=== PATIENT | male | born 1945 | race Caucasian/White ===

== ENCOUNTER → 2019-08-02 | Outpatient (CLI) | payer MEDICARE | END | disposition home or self-care (01) | LOC: SHCH 13:57 | PROVIDERS: ATTEND Internal Medicine Cardiovascular Disease | DX: R60.0 Localized edema (principal) | CPT/HCPCS: 93306; 93970 ==

== ENCOUNTER → 2019-08-05 | Outpatient (CLI) | payer OTHER | END | disposition home or self-care (01) | LOC: RAH 10:04 → EDUNIT# 10:30 | PROVIDERS: ATTEND Internal Medicine Cardiovascular Disease | DX: Z13.6 Encounter for screening for cardiovascular disorders (principal) | CPT/HCPCS: 75571 ==

== ENCOUNTER → 2019-11-04 | Outpatient (CLI) | payer MEDICARE | END | disposition home or self-care (01) | LOC: SHCH 15:40 | PROVIDERS: ATTEND Internal Medicine Cardiovascular Disease | DX: I82.812 Embolism and thrombosis of superficial veins of left lower extremity (principal); Z09 Encounter for follow-up examination after completed treatment for conditions other than malignant neoplasm | CPT/HCPCS: 93971 ==

== ENCOUNTER → 2023-09-06 | Outpatient (CLI) | payer MEDICARE ==
[~2023-09-06] MED LIST: AEC81 PO; ALLO100T PO; CALC0.253 PO; CETI10TA57 PO; CHOL2000 PO; CHOL200026 PO; DOCU-116 PO; FERS325 PO; FOLI0.8T53 PO; FOLIC ACID PO; FURO20TA4 PO; IMAT100T8 PO; INSLAN SQ; LABE100T7 PO; MAGN250T10 PO; MIDO10TA PO; PATI8.4P PO; SEMA1PEN3 SQ; SEMA2PEN SQ; SIMV40TA59 PO; SODI650T PO; TACR0.5C7 PO; TAMS-1 PO; TRAM50TA4 PO; VITAMIN B12 PO
== END | disposition home or self-care (01) ==
LOC: SHCH 10:00
PROVIDERS: ATTEND Student in an Organized Health Care Education/Training Program
DX: R42 Dizziness and giddiness (principal)
CPT/HCPCS: 93306

== ENCOUNTER 2023-09-29 15:30 | Inpatient (IN) | payer MEDICARE ==
[~2023-09-29] VITALS: Ht 185.4 cm; Wt 116.6 kg
[~2023-09-29 15:30] MED LIST changes: -ALLO100T PO; -CHOL200026 PO; -FOLI0.8T53 PO; -MIDO10TA PO; -SEMA1PEN3 SQ
[2023-09-29] MEDS ORDERED: VANCOMYCIN PROTOCOL PER PHARMACY IV SCH (16:00)
[2023-09-29 16:20] LABS: BASOPHILS # (AUTO) 0.07 K/uL (0.00-0.20); BASOPHILS % (AUTO) 0.3 % (0.0-5.0); EOSINOPHILS # (AUTO) 0.04 K/uL (0.00-0.70); EOSINOPHILS % (AUTO) 0.2 % (0.0-8.0); HEMATOCRIT 33.4 % (42-54); IMMATURE GRANULOCYTE ABSOLUTE 0.18 K/uL (0-1); LYMPHOCYTES # (AUTO) 0.2 K/uL (1.0-4.8); LYMPHOCYTES % (AUTO) 0.7 % (21.0-51.0); MEAN CORPUSCULAR HEMOGLOBIN 29.3 pg (27.0-33.0); MEAN CORPUSCULAR HGB CONC 32.3 g/dL (32.0-36.0); MEAN CORPUSCULAR VOLUME 90.8 fL (79-99); MONOCYTES # (AUTO) 0.1 K/uL (0.1-1.0); MONOCYTES % (AUTO) 0.6 % (3.0-13.0); NEUTROPHILS # (AUTO) 23.8 K/uL (1.8-7.7); NEUTROPHILS % (AUTO) 97.5 % (40.0-77.0); PLATELET COUNT (AUTO) 308 K/uL (130-400); RED BLOOD CELL COUNT(AUTO) 3.68 MIL/uL (4.50-6.20); RED CELL DISTRIBUTION WIDTH 14.6 % (11.0-15.5); WHITE BLOOD COUNT (AUTO) 24.4 K/uL (4.8-10.8)
[2023-09-29] MEDS ORDERED: ACETAMINOPHEN 325 MG TAB PO PRN (16:30)
[2023-09-29] MEDS ORDERED: CEFEPIME HCL 2 GM VIAL IVPB SCH (16:30)
[2023-09-29] MEDS ORDERED: ONDANSETRON 4MG INJ IVP PRN (16:30)
[2023-09-29 16:54] LABS: ALBUMIN 2.1 g/dL (3.5-5.0); BILIRUBIN,TOTAL 0.3 mg/dL (0.2-1.0); TOTAL PROTEIN, SERUM 6.3 g/dL (6.0-8.3)
[2023-09-29 16:58] LABS: POTASSIUM 2.9 mmol/L (3.5-5.1)
[2023-09-29] MEDS: 0.9%NACL 1000ML 2,397 ML IV ONE (17:13)
[2023-09-29] MEDS: VANCOMYCIN 2GM/500 ML BAG 500 ML IV ONE (17:38)
[2023-09-29] MEDS: HEPARIN 5,000 UNIT VIAL SQ SCH (17:38)
[2023-09-29] MEDS: KCL 20 MEQ ERTAB PO ONE (17:39)
[2023-09-29] MEDS: CEFEPIME HCL 1 GM VIAL IVPB SCH (17:41)
[2023-09-29 18:51] LABS: INFLUENZA TYPE A Negative For Type A (NEGATIVE); INFLUENZA TYPE B Negative For Type B (NEGATIVE)
[2023-09-29] MEDS ORDERED: MIDO10TA PO ×2 (20:02)
[2023-09-29] MEDS ORDERED: FOLI0.8T53 PO (20:16)
[2023-09-29] MEDS ORDERED: ALLO100T PO (20:16)
[2023-09-29] MEDS ORDERED: CHOL200026 PO (20:16)
[2023-09-29] MEDS ORDERED: SEMA1PEN3 SQ (20:16)
[2023-09-29] MEDS ORDERED: CALC0.253 PO (20:16)
[2023-09-29] MEDS: MIDODRINE HCL 5 MG TABLET ONE (20:26)
[2023-09-29] MEDS: MIDODRINE HCL 5 MG TABLET PO SCH (20:26)
[2023-09-29 20:50] LABS: APPEARANCE,URINE CLOUDY (CLEAR); BILIRUBIN,URINE NEGATIVE (NEGATIVE); COLOR,URINE YELLOW (YELLOW); GLUCOSE, URINE (UA) 500 mg/dL (NEGATIVE); KETONES,URINE NEGATIVE (NEGATIVE); LEUKOCYTE ESTERASE ,URINE 500 Leu/uL (NEGATIVE); NITRATE,URINE NEGATIVE (NEGATIVE); OCCULT BLOOD,URINE LARGE (NEGATIVE); PROTEIN,URINE 70 mg/dL (NEGATIVE); UROBILINOGEN,URINE 0.2 mg/dL (0.2-1.0)
[2023-09-29] MEDS: ALBUMIN (HUMAN) 25% 50 ML IV SCH (20:58)
[2023-09-29] MEDS: ALBUMIN (HUMAN) 25% 50 ML IV ONE (20:58)
[2023-09-29 21:05] LABS: ADD UA MICROSCOPIC YES
[2023-09-29 21:11] LABS: BACTERIA,URINE RARE /HPF (None Seen); RBC,URINE 26-50 /HPF (0-1); SQUAMOUS EPITHELIAL CELL,UR RARE /HPF (0-2); WBC,URINE 26-50 /HPF (0-1)
[2023-09-29] MEDS: NOREPINEPHRIN 4MG/NS 250ML 250 ML IV SCH (21:56)
[2023-09-29 23:45] VITALS: BP 131/63; PULSE 90; RESP 24
[2023-09-30] VITALS (120 sets, daily range): BP systolic 78–134; BP diastolic 31–69; PULSE 71–103; RESP 13–36; TEMP 98.6–98.8; O2SAT 94–98
[2023-09-30 01:05] LABS: ALBUMIN 1.9 g/dL (3.5-5.0); BILIRUBIN,TOTAL 0.5 mg/dL (0.2-1.0); MAGNESIUM 1.6 mg/dL (1.80-2.40); POTASSIUM 3.3 mmol/L (3.5-5.1); TOTAL PROTEIN, SERUM 5.7 g/dL (6.0-8.3)
[2023-09-30 01:08] LABS: CREATININE 11.7 mg/dL (0.5-1.3)
[2023-09-30] MEDS: MAGNESIUM 2GM PREMIX 50ML 50 ML IV ONE (01:42)
[2023-09-30 05:46] LABS: BASOPHILS # (AUTO) 0.08 K/uL (0.00-0.20); BASOPHILS % (AUTO) 0.3 % (0.0-5.0); EOSINOPHILS # (AUTO) 0.01 K/uL (0.00-0.70); HEMATOCRIT 28.5 % (42-54); LYMPHOCYTES # (AUTO) 0.4 K/uL (1.0-4.8); LYMPHOCYTES % (AUTO) 1.7 % (21.0-51.0); MEAN CORPUSCULAR HEMOGLOBIN 29.8 pg (27.0-33.0); MEAN CORPUSCULAR HGB CONC 33.3 g/dL (32.0-36.0); MEAN CORPUSCULAR VOLUME 89.3 fL (79-99); MONOCYTES # (AUTO) 1.5 K/uL (0.1-1.0); MONOCYTES % (AUTO) 6.2 % (3.0-13.0); NEUTROPHILS # (AUTO) 22.5 K/uL (1.8-7.7); PLATELET COUNT (AUTO) 234 K/uL (130-400); RED BLOOD CELL COUNT(AUTO) 3.19 MIL/uL (4.50-6.20); RED CELL DISTRIBUTION WIDTH 14.4 % (11.0-15.5); WHITE BLOOD COUNT (AUTO) 24.8 K/uL (4.8-10.8)
[2023-09-30 06:06] LABS: INR 1.02 (0.85-1.15); PROTHROMBIN TIME 10.8 SEC (9.6-11.6)
[2023-09-30 06:08] LABS: HEMOGLOBIN A1C 6.8 % (4.0-6.0)
[2023-09-30 06:18] LABS: ALBUMIN 1.7 g/dL (3.5-5.0); BILIRUBIN,TOTAL 0.4 mg/dL (0.2-1.0); MAGNESIUM 2.1 mg/dL (1.80-2.40); TOTAL PROTEIN, SERUM 5.3 g/dL (6.0-8.3); VANCOMYCIN LEVEL 28.1 mcg/mL (20.0-30.0)
[2023-09-30 06:21] LABS: CREATININE 11.9 mg/dL (0.5-1.3)
[2023-09-30] MEDS: MIDODRINE HCL 5 MG TABLET PO SCH (08:12)
[2023-09-30] MEDS: 0.9%NACL 1000ML 500 ML IV STA (10:39)
[2023-09-30] MEDS: ZOSYN 3.375GM +NS 50ML IV SCH (11:56)
[2023-09-30] MEDS ORDERED: MIDODRINE HCL 5 MG TABLET PO SCH (12:00)
[2023-09-30] MEDS: INSULIN HUMULIN R 100 UNIT/ML 3ML SQ SCH (16:30)
[2023-09-30] MEDS: 0.9%NACL 1000ML 1,000 ML IV SCH (19:39)
[2023-09-30] MEDS: HEPARIN 5,000 UNIT VIAL IJ SCH (19:41)
[2023-09-30] MEDS ORDERED: TACROLIMUS 0.5 MG CAPSULE PO SCH (21:00)
[2023-09-30] MEDS: IMATINIB MESYLATE 200 MG PO SCH (21:00)
[2023-09-30] MEDS: TAMSULOSIN HCL 0.4 MG CAP.ER.24H PO SCH (22:28)
[2023-09-30] MEDS: TACROLIMUS 0.5 MG CAPSULE PO SCH (22:57)
[2023-10-01] VITALS (41 sets, daily range): BP systolic 86–129; BP diastolic 38–63; PULSE 75–102; RESP 15–30; TEMP 97.5–97.9; O2SAT 94–97
[2023-10-01 04:36] LABS: BASOPHILS # (AUTO) 0.07 K/uL (0.00-0.20); BASOPHILS % (AUTO) 0.5 % (0.0-5.0); EOSINOPHILS # (AUTO) 0.07 K/uL (0.00-0.70); EOSINOPHILS % (AUTO) 0.5 % (0.0-8.0); HEMATOCRIT 28.6 % (42-54); IMMATURE GRANULOCYTE ABSOLUTE 0.06 K/uL (0-1); LYMPHOCYTES # (AUTO) 0.5 K/uL (1.0-4.8); LYMPHOCYTES % (AUTO) 3.2 % (21.0-51.0); MEAN CORPUSCULAR HEMOGLOBIN 29.2 pg (27.0-33.0); MEAN CORPUSCULAR HGB CONC 32.5 g/dL (32.0-36.0); MEAN CORPUSCULAR VOLUME 89.7 fL (79-99); MONOCYTES # (AUTO) 1.7 K/uL (0.1-1.0); MONOCYTES % (AUTO) 11.4 % (3.0-13.0); NEUTROPHILS # (AUTO) 12.2 K/uL (1.8-7.7); PLATELET COUNT (AUTO) 205 K/uL (130-400); RED BLOOD CELL COUNT(AUTO) 3.19 MIL/uL (4.50-6.20); RED CELL DISTRIBUTION WIDTH 14.5 % (11.0-15.5); WHITE BLOOD COUNT (AUTO) 14.6 K/uL (4.8-10.8)
[2023-10-01 05:03] LABS: ALBUMIN 1.4 g/dL (3.5-5.0); BILIRUBIN,TOTAL 0.5 mg/dL (0.2-1.0); CREATININE 7.7 mg/dL (0.5-1.3); POTASSIUM 3.6 mmol/L (3.5-5.1); TOTAL PROTEIN, SERUM 4.9 g/dL (6.0-8.3)
[2023-10-01] MEDS: FLUCONAZOLE 400 MG/NS 200 ML 200 ML IV SCH (09:36)
[2023-10-01] MEDS: 0.9%NACL 1000ML 1,000 ML IV SCH (11:50)
[2023-10-01] MEDS: INSULIN GLARGINE 100 UNITS/ML 10 ML VIAL SQ SCH (12:11)
[2023-10-01 13:36] LABS: HEPATITIS B SURFACE ANTIGEN Non-Reactive (Nonreactive)
[2023-10-01] MEDS ORDERED: HEPARIN 5,000 UNIT VIAL IRRIG PRN (14:30)
[2023-10-01 16:34] LABS: HEPATITIS B CORE AB TOTAL Non-Reactive (Nonreactive); HEPATITIS B SURFACE ANTIBODY Negative (Reactive)
[2023-10-01] MEDS: HEPARIN 5,000 UNIT VIAL IRRIG PRN (16:43)
[2023-10-01] MEDS: VANCOMYCIN 750MG VIAL IVPB SCH (16:44)
[2023-10-02] VITALS (10 sets, daily range): BP systolic 65–103; BP diastolic 37–56; PULSE 80–95; RESP 18–21; O2SAT 95–98
[2023-10-02 03:26] LABS: BASOPHILS # (AUTO) 0.07 K/uL (0.00-0.20); BASOPHILS % (AUTO) 0.4 % (0.0-5.0); EOSINOPHILS % (AUTO) 0.6 % (0.0-8.0); HEMATOCRIT 29.9 % (42-54); IMMATURE GRANULOCYTE ABSOLUTE 0.13 K/uL (0-1); LYMPHOCYTES # (AUTO) 0.6 K/uL (1.0-4.8); LYMPHOCYTES % (AUTO) 3.6 % (21.0-51.0); MEAN CORPUSCULAR HEMOGLOBIN 29.2 pg (27.0-33.0); MEAN CORPUSCULAR HGB CONC 31.8 g/dL (32.0-36.0); MONOCYTES # (AUTO) 1.2 K/uL (0.1-1.0); MONOCYTES % (AUTO) 7.4 % (3.0-13.0); NEUTROPHILS # (AUTO) 14.1 K/uL (1.8-7.7); NEUTROPHILS % (AUTO) 87.2 % (40.0-77.0); PLATELET COUNT (AUTO) 215 K/uL (130-400); RED BLOOD CELL COUNT(AUTO) 3.25 MIL/uL (4.50-6.20); RED CELL DISTRIBUTION WIDTH 14.6 % (11.0-15.5); WHITE BLOOD COUNT (AUTO) 16.2 K/uL (4.8-10.8)
[2023-10-02 03:43] LABS: ALBUMIN 1.5 g/dL (3.5-5.0); BILIRUBIN,TOTAL 0.5 mg/dL (0.2-1.0); POTASSIUM 3.4 mmol/L (3.5-5.1); TOTAL PROTEIN, SERUM 5.4 g/dL (6.0-8.3)
[2023-10-02] MEDS: INSULIN GLARGINE 100 UNITS/ML 10 ML VIAL SQ SCH (08:17)
[2023-10-02] MEDS ORDERED: ALBUMIN (HUMAN) 25% 50 ML IV SCH (11:30)
[2023-10-02] MEDS: 0.9% NACL 500ML IV.SOLN 500 ML IV SCH (15:18)
[2023-10-02] MEDS ORDERED: ALBUMIN (HUMAN) 25% 100 ML IV PRN (17:00)
[2023-10-03] VITALS (46 sets, daily range): BP systolic 88–146; BP diastolic 42–80; PULSE 70–100; RESP 14–20; TEMP 98–98.4; O2SAT 96–98
[2023-10-03 05:23] LABS: BASOPHILS # (AUTO) 0.05 K/uL (0.00-0.20); BASOPHILS % (AUTO) 0.4 % (0.0-5.0); EOSINOPHILS # (AUTO) 0.19 K/uL (0.00-0.70); EOSINOPHILS % (AUTO) 1.5 % (0.0-8.0); HEMATOCRIT 25.3 % (42-54); IMMATURE GRANULOCYTE ABSOLUTE 0.08 K/uL (0-1); LYMPHOCYTES # (AUTO) 0.8 K/uL (1.0-4.8); LYMPHOCYTES % (AUTO) 6.4 % (21.0-51.0); MEAN CORPUSCULAR HEMOGLOBIN 29.3 pg (27.0-33.0); MEAN CORPUSCULAR HGB CONC 33.2 g/dL (32.0-36.0); MEAN CORPUSCULAR VOLUME 88.2 fL (79-99); MONOCYTES # (AUTO) 0.8 K/uL (0.1-1.0); MONOCYTES % (AUTO) 6.2 % (3.0-13.0); NEUTROPHILS # (AUTO) 10.9 K/uL (1.8-7.7); NEUTROPHILS % (AUTO) 84.9 % (40.0-77.0); PLATELET COUNT (AUTO) 195 K/uL (130-400); RED BLOOD CELL COUNT(AUTO) 2.87 MIL/uL (4.50-6.20); RED CELL DISTRIBUTION WIDTH 14.6 % (11.0-15.5); WHITE BLOOD COUNT (AUTO) 12.8 K/uL (4.8-10.8)
[2023-10-03 05:56] LABS: ALBUMIN 1.5 g/dL (3.5-5.0); BILIRUBIN,TOTAL 0.4 mg/dL (0.2-1.0); CREATININE 7.4 mg/dL (0.5-1.3); POTASSIUM 3.4 mmol/L (3.5-5.1); TOTAL PROTEIN, SERUM 4.8 g/dL (6.0-8.3); VANCOMYCIN TROUGH 20.1 UG/ML (10.0-20.0)
[2023-10-03] MEDS ORDERED: DEXAMETHASONE SOD PHOSPHATE 10MG/ML 1ML VIAL ONE (07:07)
[2023-10-03] MEDS ORDERED: MIDAZOLAM HCL 1 MG/ML 2ML VIAL ONE (07:07)
[2023-10-03] MEDS ORDERED: LIDOCAINE PF 100MG/5ML (2%) SYRINGE 5ML ONE (07:07)
[2023-10-03] MEDS ORDERED: GLYCOPYRROLATE 0.2 MG/ML 5 ML VIAL ONE (07:07)
[2023-10-03] MEDS ORDERED: FENTANYL CITRATE PF 50 MCG/1 ML 2ML VIAL ONE (07:08)
[2023-10-03] MEDS ORDERED: NEOSTIGMINE METHYLSULFATE 1MG/ML IV ONE (07:08)
[2023-10-03] MEDS ORDERED: ONDANSETRON 4MG INJ ONE (07:08)
[2023-10-03] MEDS ORDERED: SUCCINYLCHOLINE CHLORIDE 20 MG/ML 10 ML VIAL ONE (07:08)
[2023-10-03] MEDS ORDERED: ROCURONIUM BROMIDE 10MG/1ML 5ML VL ONE (07:08)
[2023-10-03] MEDS ORDERED: PROPOFOL 10 MG/ML 20ML VIAL IV ONE (07:08)
[2023-10-03] MEDS ORDERED: EPHEDRINE SULFATE 50 MG/ML AMPULE ONE (07:11)
[2023-10-03] MEDS ORDERED: ALBUMIN (HUMAN) 5% 250 ML IV ONE (07:40)
[2023-10-03] MEDS ORDERED: BUPIVACAINE/PF 0.5% 30ML VIAL ONE (07:45)
[2023-10-03] MEDS ORDERED: EPINEPHRINE PF 1MG (1:1,000) 1 MG/ML AMP ONE (07:46)
[2023-10-03] MEDS ORDERED: KETAMINE 50MG/ML SYRINGE 50 MG/ML DISP.SYRIN ONE (07:47)
[2023-10-03] MEDS: ZOSYN 3.375GM+NS 50ML 50 ML ONE ×2 (08:41)
[2023-10-03] MEDS: 0.9% NACL 500ML IV.SOLN 500 ML IV ONE (08:42)
[2023-10-03] MEDS: PIP/TAZ ZOSYN 3.375G 3.375 GM VIAL IVPB ONE (10:00)
[2023-10-03] MEDS ORDERED: HEPARIN 5,000 UNIT VIAL IRRIG PRN (16:00)
[2023-10-03] MEDS: 0.9%NACL 1000ML 1,000 ML IV SCH (16:30)
[2023-10-03] MEDS ORDERED: 0.9% NACL 250ML 250 ML IV SCH (16:30)
[2023-10-03] MEDS: EPOETIN ALFA-EPBX (NON-ESRD) 10,000 UNIT/ML VIAL SQ SCH (17:11)
[2023-10-04] VITALS (10 sets, daily range): BP systolic 118–135; BP diastolic 65–71; PULSE 64–78; RESP 18–20; O2SAT 96–99
[2023-10-04 03:37] LABS: BASOPHILS # (AUTO) 0.02 K/uL (0.00-0.20); BASOPHILS % (AUTO) 0.3 % (0.0-5.0); IMMATURE GRANULOCYTE ABSOLUTE 0.15 K/uL (0-1); LYMPHOCYTES # (AUTO) 0.5 K/uL (1.0-4.8); LYMPHOCYTES % (AUTO) 6.3 % (21.0-51.0); MEAN CORPUSCULAR HEMOGLOBIN 28.8 pg (27.0-33.0); MEAN CORPUSCULAR HGB CONC 31.7 g/dL (32.0-36.0); MEAN CORPUSCULAR VOLUME 90.9 fL (79-99); MONOCYTES # (AUTO) 0.1 K/uL (0.1-1.0); MONOCYTES % (AUTO) 1.7 % (3.0-13.0); NEUTROPHILS % (AUTO) 89.8 % (40.0-77.0); PLATELET COUNT (AUTO) 231 K/uL (130-400); RED BLOOD CELL COUNT(AUTO) 3.19 MIL/uL (4.50-6.20); RED CELL DISTRIBUTION WIDTH 14.5 % (11.0-15.5); WHITE BLOOD COUNT (AUTO) 7.8 K/uL (4.8-10.8)
[2023-10-04 03:59] LABS: ALBUMIN 1.6 g/dL (3.5-5.0); BILIRUBIN,TOTAL 0.4 mg/dL (0.2-1.0); CREATININE 5.9 mg/dL (0.5-1.3); POTASSIUM 4.4 mmol/L (3.5-5.1); TOTAL PROTEIN, SERUM 5.2 g/dL (6.0-8.3)
[2023-10-04 04:28] LABS: LYMPHOCYTES % (MANUAL) 8 % (22-44); MONOCYTES % (MANUAL) 1 % (2-9); SEGMENTED NEUTROPHILS % 91 % (40-70); TOTAL CELLS COUNTED 100
[2023-10-04 04:29] LABS: MAN.DIFF COMMENT-IMPRESSION MANUAL DIFFERENTIAL
[2023-10-04 04:34] LABS: PLATELET MORPHOLOGY COMMENT ADEQUATE; WBC MORPHOLOGY HYPERSEGMENT NEUT 1+
[2023-10-05] VITALS (7 sets, daily range): BP systolic 117–131; BP diastolic 58–72; PULSE 58–70; RESP 18–20; O2SAT 96–99
[2023-10-05 03:47] LABS: HEMATOCRIT 28.5 % (42-54); MEAN CORPUSCULAR HGB CONC 31.9 g/dL (32.0-36.0); MEAN CORPUSCULAR VOLUME 90.8 fL (79-99); RED BLOOD CELL COUNT(AUTO) 3.14 MIL/uL (4.50-6.20); RED CELL DISTRIBUTION WIDTH 14.5 % (11.0-15.5)
[2023-10-05 03:59] LABS: CREATININE 7.1 mg/dL (0.5-1.3); MAGNESIUM 1.9 mg/dL (1.80-2.40); POTASSIUM 3.8 mmol/L (3.5-5.1)
[2023-10-05] MEDS: MAGNESIUM 2GM PREMIX 50ML 50 ML IV SCH (05:27)
[2023-10-06] VITALS (29 sets, daily range): BP systolic 102–158; BP diastolic 49–69; PULSE 60–74; RESP 16–19; TEMP 97.7–97.9; O2SAT 96–100
[2023-10-06 03:35] LABS: HEMATOCRIT 29.2 % (42-54); MEAN CORPUSCULAR HEMOGLOBIN 28.4 pg (27.0-33.0); MEAN CORPUSCULAR HGB CONC 30.8 g/dL (32.0-36.0); MEAN CORPUSCULAR VOLUME 92.1 fL (79-99); NUCLEATED RED BLOOD CELLS 0.1 % (0.0-0.19); RED BLOOD CELL COUNT(AUTO) 3.17 MIL/uL (4.50-6.20); RED CELL DISTRIBUTION WIDTH 14.4 % (11.0-15.5); WHITE BLOOD COUNT (AUTO) 14.8 K/uL (4.8-10.8)
[2023-10-06 03:48] LABS: MAGNESIUM 2.1 mg/dL (1.80-2.40); POTASSIUM 3.5 mmol/L (3.5-5.1)
[2023-10-06 04:19] LABS: CREATININE 8.4 mg/dL (0.5-1.3)
[2023-10-06] MEDS: IPRATROPIUM 0.5 MG/2.5 ML INH IH SCH (06:32)
[2023-10-06] MEDS: SODIUM CHLORIDE 3% FOR INHALATION 4 ML/AMP VIAL.NEB IH ONE ×2 (06:32→11:51)
[2023-10-06] MEDS ORDERED: 0.9%NACL 1000ML 1,000 ML IV SCH (14:00)
[2023-10-06] MEDS: DOCUSATE SODIUM 100 MG CAP PO ONE (14:36)
[2023-10-07] VITALS (14 sets, daily range): BP systolic 114–160; BP diastolic 51–76; PULSE 56–87; RESP 18–19; O2SAT 95–98
[2023-10-07 04:00] LABS: BASOPHILS # (AUTO) 0.05 K/uL (0.00-0.20); BASOPHILS % (AUTO) 0.4 % (0.0-5.0); EOSINOPHILS # (AUTO) 0.16 K/uL (0.00-0.70); EOSINOPHILS % (AUTO) 1.2 % (0.0-8.0); HEMATOCRIT 28.4 % (42-54); IMMATURE GRANULOCYTE ABSOLUTE 0.95 K/uL (0-1); LYMPHOCYTES # (AUTO) 1.6 K/uL (1.0-4.8); LYMPHOCYTES % (AUTO) 11.5 % (21.0-51.0); MEAN CORPUSCULAR HEMOGLOBIN 28.9 pg (27.0-33.0); MEAN CORPUSCULAR HGB CONC 31.7 g/dL (32.0-36.0); MEAN CORPUSCULAR VOLUME 91.3 fL (79-99); MONOCYTES # (AUTO) 0.8 K/uL (0.1-1.0); NEUTROPHILS # (AUTO) 10.2 K/uL (1.8-7.7); NUCLEATED RED BLOOD CELLS 0.2 % (0.0-0.19); PLATELET COUNT (AUTO) 323 K/uL (130-400); RED BLOOD CELL COUNT(AUTO) 3.11 MIL/uL (4.50-6.20); RED CELL DISTRIBUTION WIDTH 14.5 % (11.0-15.5); WHITE BLOOD COUNT (AUTO) 13.8 K/uL (4.8-10.8)
[2023-10-07 04:28] LABS: ALBUMIN 1.5 g/dL (3.5-5.0); BILIRUBIN,TOTAL 0.3 mg/dL (0.2-1.0); CREATININE 6.6 mg/dL (0.5-1.3); POTASSIUM 3.3 mmol/L (3.5-5.1); TOTAL PROTEIN, SERUM 4.5 g/dL (6.0-8.3)
[2023-10-07 04:42] LABS: B-TYPE NATRIURETIC PEPTIDE 399 pg/mL (0-100)
[2023-10-07] MEDS: KCL 20 MEQ ERTAB PO ONE (12:39)
[2023-10-07] MEDS ORDERED: IOHEXOL-350 75 ML VIAL IV ONE (15:59)
[2023-10-07] MEDS: DOCUSATE SODIUM 100 MG CAP PO ONE (20:50)
[2023-10-08] VITALS (26 sets, daily range): BP systolic 102–173; BP diastolic 49–82; PULSE 43–94; RESP 16–20; TEMP 97.9–98.2; O2SAT 96–99
[2023-10-08 04:45] LABS: BASOPHILS # (AUTO) 0.07 K/uL (0.00-0.20); BASOPHILS % (AUTO) 0.5 % (0.0-5.0); EOSINOPHILS # (AUTO) 0.28 K/uL (0.00-0.70); EOSINOPHILS % (AUTO) 1.9 % (0.0-8.0); HEMATOCRIT 27.9 % (42-54); IMMATURE GRANULOCYTE ABSOLUTE 0.93 K/uL (0-1); LYMPHOCYTES # (AUTO) 1.6 K/uL (1.0-4.8); LYMPHOCYTES % (AUTO) 11.1 % (21.0-51.0); MEAN CORPUSCULAR HEMOGLOBIN 28.6 pg (27.0-33.0); MEAN CORPUSCULAR HGB CONC 31.9 g/dL (32.0-36.0); MEAN CORPUSCULAR VOLUME 89.7 fL (79-99); MONOCYTES # (AUTO) 0.9 K/uL (0.1-1.0); MONOCYTES % (AUTO) 6.2 % (3.0-13.0); NEUTROPHILS # (AUTO) 10.8 K/uL (1.8-7.7); NEUTROPHILS % (AUTO) 73.9 % (40.0-77.0); NUCLEATED RED BLOOD CELLS 0.5 % (0.0-0.19); PLATELET COUNT (AUTO) 316 K/uL (130-400); RED BLOOD CELL COUNT(AUTO) 3.11 MIL/uL (4.50-6.20); RED CELL DISTRIBUTION WIDTH 14.8 % (11.0-15.5); WHITE BLOOD COUNT (AUTO) 14.6 K/uL (4.8-10.8)
[2023-10-08 05:07] LABS: ALBUMIN 1.5 g/dL (3.5-5.0); BILIRUBIN,TOTAL 0.3 mg/dL (0.2-1.0); POTASSIUM 3.4 mmol/L (3.5-5.1); TOTAL PROTEIN, SERUM 4.6 g/dL (6.0-8.3); VANCOMYCIN TROUGH 24.9 UG/ML (10.0-20.0)
[2023-10-08 06:02] LABS: CREATININE 8.3 mg/dL (0.5-1.3)
[2023-10-08] MEDS ORDERED: 0.9%NACL 1000ML 1,000 ML IV SCH (08:30)
[2023-10-08] MEDS: ALLOPURINOL 100 MG TABLET PO ONE (17:19)
[2023-10-08] MEDS: IPRATROPIUM 0.5 MG/2.5 ML INH IH SCH (20:29)
[2023-10-08] MEDS: DOCUSATE SODIUM 100 MG CAP PO SCH (20:34)
[2023-10-09] VITALS (15 sets, daily range): BP systolic 114–149; BP diastolic 53–72; PULSE 74–98; RESP 18–22; O2SAT 95–98
[2023-10-09 03:32] LABS: MEAN CORPUSCULAR HEMOGLOBIN 28.9 pg (27.0-33.0); MEAN CORPUSCULAR HGB CONC 31.4 g/dL (32.0-36.0); MEAN CORPUSCULAR VOLUME 91.8 fL (79-99); NUCLEATED RED BLOOD CELLS 0.2 % (0.0-0.19); RED BLOOD CELL COUNT(AUTO) 3.05 MIL/uL (4.50-6.20); WHITE BLOOD COUNT (AUTO) 13.5 K/uL (4.8-10.8)
[2023-10-09 03:55] LABS: ALBUMIN 1.5 g/dL (3.5-5.0); BILIRUBIN,TOTAL 0.3 mg/dL (0.2-1.0); CREATININE 6.8 mg/dL (0.5-1.3); MAGNESIUM 1.6 mg/dL (1.80-2.40); POTASSIUM 3.6 mmol/L (3.5-5.1); TOTAL PROTEIN, SERUM 4.8 g/dL (6.0-8.3)
[2023-10-09] MEDS: BISACODYL 10 MG SUPP.RECT RC ONE (08:06)
[2023-10-09] MEDS: ALLOPURINOL 100 MG TABLET PO SCH (08:07)
[2023-10-09] MEDS: BISACODYL 5 MG TABLET.DR PO PRN (16:08)
[2023-10-09] MEDS: NYSTATIN-TRIAMCINOLONE CREAM 15 GM TP SCH (17:09)
[2023-10-09] MEDS: NYSTATIN 100000 UNIT/ML 5ML UDCUP PO SCH (17:09)
[2023-10-10] VITALS (34 sets, daily range): BP systolic 100–145; BP diastolic 49–74; PULSE 60–91; RESP 16–21; TEMP 98–98.5; O2SAT 95–100
[2023-10-10 05:14] LABS: BASOPHILS # (AUTO) 0.05 K/uL (0.00-0.20); BASOPHILS % (AUTO) 0.5 % (0.0-5.0); EOSINOPHILS % (AUTO) 2.1 % (0.0-8.0); HEMATOCRIT 25.5 % (42-54); IMMATURE GRANULOCYTE ABSOLUTE 0.57 K/uL (0-1); LYMPHOCYTES # (AUTO) 1.3 K/uL (1.0-4.8); LYMPHOCYTES % (AUTO) 14.2 % (21.0-51.0); MEAN CORPUSCULAR HEMOGLOBIN 28.1 pg (27.0-33.0); MEAN CORPUSCULAR HGB CONC 31.8 g/dL (32.0-36.0); MEAN CORPUSCULAR VOLUME 88.5 fL (79-99); MONOCYTES # (AUTO) 0.6 K/uL (0.1-1.0); MONOCYTES % (AUTO) 6.7 % (3.0-13.0); NEUTROPHILS # (AUTO) 6.6 K/uL (1.8-7.7); NEUTROPHILS % (AUTO) 70.4 % (40.0-77.0); PLATELET COUNT (AUTO) 276 K/uL (130-400); RED BLOOD CELL COUNT(AUTO) 2.88 MIL/uL (4.50-6.20); RED CELL DISTRIBUTION WIDTH 14.8 % (11.0-15.5); WHITE BLOOD COUNT (AUTO) 9.4 K/uL (4.8-10.8)
[2023-10-10 05:20] LABS: ALBUMIN 1.4 g/dL (3.5-5.0); BILIRUBIN,TOTAL 0.3 mg/dL (0.2-1.0); POTASSIUM 3.5 mmol/L (3.5-5.1); TOTAL PROTEIN, SERUM 4.8 g/dL (6.0-8.3)
[2023-10-10 05:34] LABS: CREATININE 8.1 mg/dL (0.5-1.3); VANCOMYCIN TROUGH 26.6 UG/ML (10.0-20.0)
[2023-10-10] MEDS: PHARMACY COMMUNICATION MISC SCH (06:00)
[2023-10-10 09:00] LABS: INR 1.02 (0.85-1.15)
[2023-10-10] MEDS: EPOETIN ALFA-EPBX (NON-ESRD) 10,000 UNIT/ML VIAL SQ SCH (09:17)
[2023-10-10] MEDS ORDERED: LIDOCAINE HCL 400MG/20ML VIAL ONE (11:45)
[2023-10-10] MEDS ORDERED: HEPARIN 1,000 UNIT VIAL ONE (11:46)
[2023-10-10] MEDS: 0.9%NACL 1000ML 1,000 ML IV ONE (17:32)
[2023-10-11] VITALS (7 sets, daily range): BP systolic 120–124; BP diastolic 63–69; PULSE 79–93; RESP 16–19; O2SAT 97
[2023-10-11 04:19] LABS: HEMATOCRIT 29.5 % (42-54); MEAN CORPUSCULAR HEMOGLOBIN 28.7 pg (27.0-33.0); MEAN CORPUSCULAR HGB CONC 31.2 g/dL (32.0-36.0); MEAN CORPUSCULAR VOLUME 91.9 fL (79-99); NUCLEATED RED BLOOD CELLS 0.2 % (0.0-0.19); RED BLOOD CELL COUNT(AUTO) 3.21 MIL/uL (4.50-6.20); RED CELL DISTRIBUTION WIDTH 14.9 % (11.0-15.5); WHITE BLOOD COUNT (AUTO) 12.3 K/uL (4.8-10.8)
[2023-10-11 04:37] LABS: CREATININE 6.7 mg/dL (0.5-1.3); MAGNESIUM 1.8 mg/dL (1.80-2.40); POTASSIUM 3.7 mmol/L (3.5-5.1)
== END 2023-10-11 17:11 | disposition home or self-care (01) | DRG 907 ==
LOC: EDH 15:30 → EDHIP 15:31 → 2CH 23:41 → 2AH 10-01 18:25
PROVIDERS: ADMIT Internal Medicine Infectious Disease; ATTEND Internal Medicine Infectious Disease
PROC: 5A1D70Z Performance of Urinary Filtration, Intermittent, Less than 6 Hours Per Day (ICD-10-PCS; 2023-09-30)
PROC: 02HV33Z Insertion of Infusion Device into Superior Vena Cava, Percutaneous Approach (ICD-10-PCS; 2023-09-30)
PROC: B548ZZA Ultrasonography of Superior Vena Cava, Guidance (ICD-10-PCS; 2023-09-30)
PROC: 5A1D70Z Performance of Urinary Filtration, Intermittent, Less than 6 Hours Per Day (ICD-10-PCS; 2023-10-01)
PROC: 5A1D70Z Performance of Urinary Filtration, Intermittent, Less than 6 Hours Per Day (ICD-10-PCS; 2023-10-03)
PROC: 0WPG03Z Removal of Infusion Device from Peritoneal Cavity, Open Approach (ICD-10-PCS; principal; 2023-10-03 11:25)
PROC: 5A1D70Z Performance of Urinary Filtration, Intermittent, Less than 6 Hours Per Day (ICD-10-PCS; 2023-10-06)
PROC: 5A1D70Z Performance of Urinary Filtration, Intermittent, Less than 6 Hours Per Day (ICD-10-PCS; 2023-10-07)
PROC: B548ZZA Ultrasonography of Superior Vena Cava, Guidance (ICD-10-PCS; 2023-10-10)
PROC: 0JH63XZ Insertion of Tunneled Vascular Access Device into Chest Subcutaneous Tissue and Fascia, Percutaneous Approach (ICD-10-PCS; 2023-10-10)
PROC: 02H633Z Insertion of Infusion Device into Right Atrium, Percutaneous Approach (ICD-10-PCS; 2023-10-10)
PROC: B5181ZA Fluoroscopy of Superior Vena Cava using Low Osmolar Contrast, Guidance (ICD-10-PCS; 2023-10-10)
PROC: 5A1D70Z Performance of Urinary Filtration, Intermittent, Less than 6 Hours Per Day (ICD-10-PCS; 2023-10-10)
DX: T85.71XA Infection and inflammatory reaction due to peritoneal dialysis catheter, initial encounter (principal); A41.59 Other Gram-negative sepsis; I21.4 Non-ST elevation (NSTEMI) myocardial infarction; J18.9 Pneumonia, unspecified organism; N18.6 End stage renal disease; R65.21 Severe sepsis with septic shock; E43 Unspecified severe protein-calorie malnutrition; J96.21 Acute and chronic respiratory failure with hypoxia; K65.9 Peritonitis, unspecified; I12.0 Hypertensive chronic kidney disease with stage 5 chronic kidney disease or end stage renal disease; Z94.4 Liver transplant status; D84.821 Immunodeficiency due to drugs; C92.10 Chronic myeloid leukemia, BCR/ABL-positive, not having achieved remission; N39.0 Urinary tract infection, site not specified; E87.0 Hyperosmolality and hypernatremia; J98.11 Atelectasis; T85.611A Breakdown (mechanical) of intraperitoneal dialysis catheter, initial encounter; E66.01 Morbid (severe) obesity due to excess calories; E78.5 Hyperlipidemia, unspecified; E87.6 Hypokalemia; D63.1 Anemia in chronic kidney disease; Y83.8 Other surgical procedures as the cause of abnormal reaction of the patient, or of later complication, without mention of misadventure at the time of the procedure; B96.89 Other specified bacterial agents as the cause of diseases classified elsewhere; E11.22 Type 2 diabetes mellitus with diabetic chronic kidney disease; E11.65 Type 2 diabetes mellitus with hyperglycemia; E86.1 Hypovolemia; E87.5 Hyperkalemia; E87.70 Fluid overload, unspecified; R16.0 Hepatomegaly, not elsewhere classified; Y81.2 Prosthetic and other implants, materials and accessory general- and plastic-surgery devices associated with adverse incidents; Z68.32 Body mass index [BMI] 32.0-32.9, adult; Z79.60 Long term (current) use of unspecified immunomodulators and immunosuppressants; Z99.2 Dependence on renal dialysis; Z87.442 Personal history of urinary calculi; Z79.899 Other long term (current) drug therapy; Z83.3 Family history of diabetes mellitus; Z96.653 Presence of artificial knee joint, bilateral; Z99.81 Dependence on supplemental oxygen
CPT/HCPCS: 36415; 36556; 36558; 36800; 71045; 71250; 74170; 76705; 77001; 80048; 80053; 80202; 81001; 82105; 82330; 82378; 82550; 82948; 83036; 83605; 83735; 83880; 84132; 84145; 84484; 85025; 85027; 85610; 86316; 86704; 86706; 87040; 87070; 87071; 87076; 87086; 87186; 87205; 87340; 87804; 90935; 93005; 93306; 93971; 94640; 94664; A4344; C1750; G0378; J0171; J0330; J1100; J1450; J1644; J1815; J2001; J2250; J2405; J2543; J2704; J2710; J3010; J3475; J3490; J7030; J7040; J7507; P9045; P9046; P9047; Q9967; A4216; A4222; A4223; A4452; A4600; A4930; C1894; J0665; J3370; Q5106

== ENCOUNTER 2023-11-18 08:46 | Day surgery (SDC) | payer MEDICARE ==
[~2023-11-18] VITALS: Ht 185.4 cm; Wt 115.0 kg
[~2023-11-18 08:46] MED LIST changes: +ALLO100T PO; +CHOL200026 PO; +FOLI0.8T53 PO; +MIDO10TA PO; +SEMA1PEN3 SQ
[2023-11-18 10:00] VITALS: BP 147/70; PULSE 86; RESP 16
[2023-11-18 10:34] LABS: INR 0.99 (0.85-1.15); PROTHROMBIN TIME 10.7 SEC (9.6-11.6)
[2023-11-18 10:35] LABS: PARTIAL THROMBOPLASTIN TIME 26.9 SEC (26.3-35.5)
[2023-11-18] MEDS: 0.9%NACL 1000ML 1,000 ML IV ONE (10:37)
[2023-11-18] MEDS ORDERED: FENTANYL CITRATE PF 50 MCG/1 ML 2ML VIAL ONE (13:15)
[2023-11-18] MEDS ORDERED: MIDAZOLAM HCL 1 MG/ML 2ML VIAL ONE (13:16)
== END 2023-11-18 13:50 | disposition home or self-care (01) ==
LOC: DAH 08:46 → EDSTATUS 09:00 → DAH 13:50
PROVIDERS: ATTEND Internal Medicine Hematology & Oncology
DX: R16.0 Hepatomegaly, not elsewhere classified (principal); K74.69 Other cirrhosis of liver; C92.10 Chronic myeloid leukemia, BCR/ABL-positive, not having achieved remission; D64.9 Anemia, unspecified; E78.5 Hyperlipidemia, unspecified; G47.30 Sleep apnea, unspecified; M19.90 Unspecified osteoarthritis, unspecified site; E11.22 Type 2 diabetes mellitus with diabetic chronic kidney disease; N18.6 End stage renal disease; I50.9 Heart failure, unspecified; E11.65 Type 2 diabetes mellitus with hyperglycemia; E66.01 Morbid (severe) obesity due to excess calories; Z53.8 Procedure and treatment not carried out for other reasons; Z90.89 Acquired absence of other organs; Z90.49 Acquired absence of other specified parts of digestive tract; Z98.890 Other specified postprocedural states; Z98.49 Cataract extraction status, unspecified eye; Z99.2 Dependence on renal dialysis; Z68.33 Body mass index [BMI] 33.0-33.9, adult; Z79.899 Other long term (current) drug therapy; Z79.4 Long term (current) use of insulin; Z79.82 Long term (current) use of aspirin; Z82.3 Family history of stroke; Z83.3 Family history of diabetes mellitus; Z80.0 Family history of malignant neoplasm of digestive organs
CPT/HCPCS: 74150; 85610; 85730; 82948; 36415; J7030; A4215; A4222; A4221; A4663; A4216; A6206; A4606; A4223 ×3; J2250; J3010

== ENCOUNTER 2024-09-26 14:07 | Emergency (ER) | payer MEDICARE ==
[~2024-09-26] VITALS: Ht 182.9 cm; Wt 104.3 kg
[~2024-09-26 14:07] MED LIST changes: -CHOL2000 PO; -FERS325 PO; +FOLI0.8T22 PO; +INSU100V IV; -LABE100T7 PO; -MIDO10TA PO; +MIDO10TA3 PO; -PATI8.4P PO; -SEMA2PEN SQ; -SODI650T PO; -TAMS-1 PO; +TAMS-55 PO; -TRAM50TA4 PO
--- NOTE | 2024-09-26 14:30 | ERN ---
ED Note History of Present Illness Stated Complaint: LOW BACK PAIN S/P FALL Chief Complaint: Mechanical Fall Time Seen by MD: 14:13 Time Seen by Midlevel: 14:14 Dictation: 79-year-old male presents to the emergency department per EMS due to reported of having sustained a fall yesterday as he was exiting his vehicle. Patient states that in an attempt to turn using his walker he lost his balance and landed on his buttock. He initially started with pain to the lower and mid back and thought that the pain would eventually go away. However, he states that it has been persistent. At this time, he rates the pain as a 3/10. He states that he also injured his right thumb in an attempt to try and break his fall. Patient states that there is no loss of bowel or bladder and maintains a normal neurological function to both lower extremities. 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 Home Meds Active Scripts Docusate Sodium (Colace) 100 Mg Capsule, 100 MG PO BID, #30 CAP 0 Refills Prov:KENNEY VILLALBA MD 03/11/23 Reported Medications Allopurinol (Allopurinol) 100 Mg Tablet, 1 TAB PO DAILY for 30 Days, #30 TAB 0 Refills 06/03/24 Insulin Lispro (Humalog) 100 Unit/Ml Vial, 0 IV AD, VIAL 06/03/24 Folic Acid/Vitamin B Comp W-C (Liya-Yoseph Tablet) 0.8 Mg Tablet, 1 TAB PO DAILY for 30 Days, #30 TAB 0 Refills 06/03/24 Midodrine HCl (Midodrine HCl) 10 Mg Tablet, 10 MG PO AD, TAB 06/03/24 Cholecalciferol (Vitamin D3) (Vitamin D3) 50 Mcg (2000 Unit) Tablet, 50 MCG PO DAILY, TAB 09/29/23 Folic Acid/Vit B Complex and C (Nephro Vitamins Tablet) 0.8 Mg Tablet, 0.8 MG PO DAILY, TAB 09/29/23 Semaglutide (Ozempic) 1 Mg/0.75 Ml (4 Mg/3 Ml) Pen.injctr, 1 MG SQ QWEEK 09/29/23 Insulin Glargine,Hum.rec.anlog (Lantus) 100 Unit/Ml Inj, 65 UNITS SQ DAILY, ML 09/29/23 Magnesium Oxide (Magnesium) 250 Mg Tablet, 250 MG PO DAILY, TAB 03/06/23 Cetirizine HCl (Cetirizine HCl) 10 Mg Tablet, 10 MG PO DAILY, TAB 03/06/23 [Vitamin B12] No Conflict Check, 1 TAB PO DAILY 03/06/23 Aspirin (ASPIRIN 81 MG ECTAB) 81 Mg Ectab, 81 MG PO HS, TAB.EC 03/06/23 Tamsulosin HCl (Flomax) 0.4 Mg Cap.er.24h, 0.4 MG PO HS, CAPSULE.DR 03/06/23 Tacrolimus (Tacrolimus) 0.5 Mg Capsule, 0.5 MG PO BID, CAP 03/06/23 Simvastatin (ZOCOR) 40 Mg Tablet, 40 MG PO HS, TAB 03/06/23 Imatinib Mesylate (Imatinib Mesylate) 100 Mg Tablet, 200 MG PO HS, TAB 03/06/23 Furosemide (Furosemide) 20 Mg Tablet, 20 MG PO DAILY, TAB 03/06/23 [Folic Acid] No Conflict Check, 1 MG PO HS 03/06/23 Calcitriol (Calcitriol) 0.25 Mcg Capsule, 0.25 MCG PO QMOWEFR, CAP 03/06/23 Past Medical History Past Medical History: Cancer, Diabetes-Type II, High Cholesterol, Hypertension, Renal Failure Additional Past Medical Hx: CML Surgical History: Cholecystectomy, Other Surgical History Other: LIVER TRANSPLANT, KNEE RN Note Reviewed/Agreed w/PFSH: Yes Review of System Dictation MS/Extremity: Lower/mid back pain, right thumb pain Initial Vital Sign VS Vital Signs Date Time Temp Pulse Resp B/P (MAP) Pulse Ox O2 Delivery O2 Flow Rate FiO2 09/26/24 14:08 98.2 75 18 108/58 100 Room Air 0 09/26/24 14:34 21 Physical Exam Dictation General: awake, alert, NAD Head/Face: Normocephalic, atraumatic Eyes: PERRL, EOMI ENT: Oral mucosa moist Neck: Trachea midline, supple Cardiovascular: RRR, no edema Respiratory: Symmetrical, non-labored Abdomen: Soft, non-tender, non-distended, no guarding. Skin: Warm, dry, good turgor, no rash MS/Extremity: Painful range of motion and tenderness of the right thumb. Normal neurovascular examination. Back: Vertebral tenderness to the mid spine and lower back Neuro: COAx4, GCS 15, steady gait, Psych: Normal behavior, mood, and affect normal Results (Laboratory/Radiology) CT Scan Comment: CT scan of the lumbar and thoracic spine with no identified fractures as per radiologist. ED Course ED Course Orders Procedure Category Date Status Time Ct Thoracic Spine W/O CT 09/26/24 Resulted Contrast 14:19 Ct Lumbar Spine W/O CT 09/26/24 Resulted Contrast 14:19 Lidocaine (Lidoderm PHA 09/26/24 Complete Patch 5%) 14:30 Acetaminophen 500mg PHA 09/26/24 Complete Tab (Tylenol 500mg T 16:00 Finger(S) 2+Vws Lt RAD 09/26/24 Resulted 16:03 Current Medications Medications (Trade) Dose Ordered Sig/Salima Route PRN Reason Start Time Stop Time Status Last Admin Dose Admin Acetaminophen (TYLenol 500MG TAB) 1,000 mg ONCE ONCE PO 09/26/24 16:00 09/26/24 16:15 DC 09/26/24 16:24 Lidocaine (Lidoderm Patch 5%) 1 patch ONCE ONCE TP 09/26/24 14:30 09/26/24 14:31 DC 09/26/24 14:31 Vital Signs Date Time Temp Pulse Resp B/P (MAP) Pulse Ox O2 Delivery O2 Flow Rate FiO2 09/26/24 15:50 98.1 67 17 109/49 98 Room Air* 0 21 09/26/24 14:34 98.1 71 18 116/48 98 Room Air* 0 21 09/26/24 14:08 98.2 75 18 108/58 100 Room Air 0 Medical Decision Making MDM MDM: Differential diagnosis: Rationale: Tests considered and ordered secondary to shared decision making include: Previous outside records reviewed: Old ER visits. Risk of complication and/or morbidity or mortality of patient management: None Medications-Per medication reconciliation Need for hospitalization: Patient does not meet criteria for hospitalization. Need for emergency major/minor surgery: No There are no social concerns with this patient. Prescription drug management Prescriptions will include symptomatic care Patient's prior external medical records from other ER visits were reviewed by me as indicated. Prior testing and results from previous visits were reviewed. Prior tests were taken into account with medical decision making and resource utilization, independent historian/historians were used to obtain complete medic al history. I independently interpreted the test that were performed, results were reviewed by me and considered findings on radiology if ordered. Medical management and examination interpretation discussions were had by me with other qualified healthcare professionals as indicated for the patient's care. DX & DISP Disposition: Discharge Departure Impression: Primary Impression: Strain of thoracic region Additional Impressions: Lumbar strain, Sprain of right thumb Condition: Stable Referrals: GABRIEL MAYO MD (PCP) Time of Disposition: 17:08 FAISAL JONES Sep 26, 2024 14:30
[2024-09-26] MEDS: LIDOCAINE 5% TOPICAL PATCH TP ONE (14:31)
--- NOTE | 2024-09-26 15:54 | HMCIMG ---
Exam Type: CT lumbar spine without contrast Clinical Information: Findings: There is normal alignment of the vertebral bodies. There are no fractures. There is facet hypertrophy. There are spondylitic changes. There are no large bulges or herniations. The prevertebral soft tissues are normal. IMPRESSION: Degenerative changes as noted.
--- NOTE | 2024-09-26 16:17 | HMCIMG ---
CT THORACIC SPINE WITHOUT CONTRAST INDICATION: Back pain. TECHNIQUE: Axial helical 3 mm thick images obtained through the thoracic spine obtained without contrast. Coronal and sagittal reformatted images were submitted for interpretation. CT was performed with one or more of the following dose reduction techniques: Automated exposure control, adjustment of the mA and/or kV according to patient size, or use of iterative reconstruction technique. COMPARISON: None FINDINGS: Vertebral bodies are normal in height, without evidence for fracture or compression deformity. No evidence for subluxation. Multilevel mild anterior endplate osteophytic spurring. No significant disc protrusion/extrusion or moderate of high-grade neuroforaminal narrowing or central canal stenosis. Multilevel mild bilateral facet disease. Heterogeneous right thyroid lobe. Correlation with thyroid function tests and nonemergent outpatient sonographic imaging is recommended, if not already performed. Coronary arterial wall calcific plaque noted. Mild calcific plaque is present along the aortic arch and thoracic aortic self without aneurysmal dilation. 3 mm nonobstructing calculus at the mid to upper portion of the right kidney. Gallbladder is absent. Residual pneumobilia. The paravertebral soft tissues appear normal. IMPRESSION: 1. No evidence for fracture or subluxation. 2. 3 mm nonobstructing right renal stone. 3. Arteriosclerotic disease as described. 4. Additional minor findings, postsurgical changes, and pertinent negatives as reported.
[2024-09-26] MEDS: acetaMINOPHEN 500 MG TABLET PO ONE (16:24)
--- NOTE | 2024-09-26 16:40 | HMCIMG ---
LEFT THUMB RADIOGRAPHS - 3 VIEWS INDICATION: Left thumb pain COMPARISON: None FINDINGS: AP, lateral, and oblique views. No fracture or subluxation identified. Mild first interphalangeal joint osteoarthropathy includes joint space narrowing, articular surface sclerosis, and juxta-articular spurring. Moderate degree at the first carpometacarpal joint. Arterial wall calcific plaque. IMPRESSION: Mild first interphalangeal joint osteoarthropathy and moderate degree at the first carpometacarpal joint.
[2024-09-26 17:16] VITALS: BP 121/57; PULSE 71; RESP 16; TEMP 98.1; O2SAT 100
--- NOTE | 2024-09-26 17:41 | NUR ---
DC PATIENT WAS DC'D BY DR Dilshad Pastor TODAY, I EXPLAINED TO PATIENT TO FOLLOW UP WITH PCP, AND PROVIDED INFO BASED ON DIAGNOSIS I ALSO ANSWERED ANY FURTHER QUESTIONS THE PATIENT HAD, PATIENT WAS TAKEN BY WHEELCHAIR OUT OF ED BY ME, NO COMPLICATIONS
== END 2024-09-26 17:28 | disposition home or self-care (01) ==
LOC: EDH 14:07
DX: S29.012A Strain of muscle and tendon of back wall of thorax, initial encounter (principal); S39.012A Strain of muscle, fascia and tendon of lower back, initial encounter; S63.601A Unspecified sprain of right thumb, initial encounter; E11.9 Type 2 diabetes mellitus without complications; E78.00 Pure hypercholesterolemia, unspecified; I10 Essential (primary) hypertension; Z79.4 Long term (current) use of insulin; Z79.621 Long term (current) use of calcineurin inhibitor; Z79.82 Long term (current) use of aspirin; Z79.85 Long-term (current) use of injectable non-insulin antidiabetic drugs; Z79.899 Other long term (current) drug therapy; Z90.49 Acquired absence of other specified parts of digestive tract; Z94.4 Liver transplant status; W18.39XA Other fall on same level, initial encounter; Y93.89 Activity, other specified; Y92.89 Other specified places as the place of occurrence of the external cause; Y99.8 Other external cause status
CPT/HCPCS: 72128; 72131; 73140; 99284